=== PATIENT | male | born 1950 | race African-American/Black ===

== ENCOUNTER 2019-06-04 17:33 | Emergency (ER) | payer OTHER, MEDICAID ==
[~2019-06-04] VITALS: Ht 188 cm; Wt 86.4 kg
[~2019-06-04 17:33] MED LIST: WARF1TAB47
--- NOTE | 2019-06-04 17:48 | NUR ---
[facility], "I FELT WEAK" -LOC ALSO C/O SHARP PAIN IN HEAD AND HEAVINESS AT BLE. PATIENT A/OX4, BREATHING EVEN AND UNLABORED, NO SOB NOTED, ATTACHED TO THE MONITOR.
[2019-06-04] MEDS ORDERED: ONDANSETRON HCL/PF 4 MG/2 ML VIAL IVP ONE (18:30)
[2019-06-04] MEDS ORDERED: IV NS 0.9% 1,000 ML BAG IV ONE (18:30)
[2019-06-04] MEDS ORDERED: ACET-868 PO (18:36)
[2019-06-04] MEDS ORDERED: ONDA4TAB5 PO (18:36)
[2019-06-04] MEDS ORDERED: BUPR300T54 PO (18:36)
[2019-06-04] MEDS ORDERED: GABA800T PO (18:36)
[2019-06-04] MEDS ORDERED: HYDR12.55 PO (18:36)
[2019-06-04] MEDS ORDERED: SILD100T PO (18:36)
[2019-06-04] MEDS ORDERED: AZIL80TA PO (18:36)
[2019-06-04] MEDS ORDERED: DOCU-141 PO (18:36)
[2019-06-04] MEDS ORDERED: BUPR150T5 PO (18:36)
[2019-06-04] MEDS ORDERED: CELE200C PO (18:36)
[2019-06-04] MEDS ORDERED: DULO20CA PO (18:36)
[2019-06-04] MEDS ORDERED: FLUC200T PO (18:36)
[2019-06-04] MEDS ORDERED: ABAC1TAB3 PO (18:36)
[2019-06-04] MEDS ORDERED: NITR0.4T SL (18:36)
[2019-06-04] MEDS ORDERED: CHOL100044 PO (18:36)
[2019-06-04] MEDS ORDERED: ASPI-605 PO (18:36)
[2019-06-04] MEDS ORDERED: PANT40TA4 PO (18:36)
[2019-06-04] MEDS ORDERED: TRAM50TA2 PO (18:36)
[2019-06-04] MEDS ORDERED: CETI-102 PO (18:36)
[2019-06-04] MEDS ORDERED: TIOT18CA3 IH (18:36)
[2019-06-04] MEDS ORDERED: FLUT16SP NS (18:36)
[2019-06-04] MEDS ORDERED: ATOR80TA PO (18:36)
[2019-06-04 18:45] LABS: BASOPHILS % (AUTO) 0.5 % (0.0-2.0); EOSINOPHILS % (AUTO) 0.6 % (0.0-6.0); HEMATOCRIT 41 % (39-51); HEMOGLOBIN 13.3 g/dL (13.5-17.5); LYMPHOCYTES # (AUTO) 1.1 /CMM (0.8-4.8); LYMPHOCYTES % (AUTO) 21.8 % (20.0-44.0); MEAN CORPUSCULAR HGB CONC 33 g/dl (31.0-36.0); MEAN CORPUSCULAR VOLUME 95 fL (80-96); MONOCYTES # (AUTO) 0.5 /CMM (0.1-1.30); MONOCYTES % (AUTO) 9.5 % (2.0-12.0); NEUTROPHILS # (AUTO) 3.3 /CMM (1.8-8.9); NEUTROPHILS % (AUTO) 67.6 % (43.0-81.0); PLATELET COUNT (AUTO) 126 /CMM (150-450); WHITE BLOOD COUNT (AUTO) 4.9 K/uL (4.3-11.0)
[2019-06-04 18:55] LABS: CALCIUM, SERUM 9.1 mg/dL (8.5-10.1); CARBON DIOXIDE 28 mmol/L (21-32); CHLORIDE 104 mmol/L (98-107); CREATININE 2.4 mg/dL (0.6-1.3); GLUCOSE 106 mg/dL (74-106); POTASSIUM 3.8 mmol/L (3.5-5.1); SODIUM SERUM 140 mmol/L (136-145); UREA NITROGEN, BLOOD 27 mg/dL (7-18)
[2019-06-04 19:09] LABS: ALANINE AMINOTRANSFERASE 26 U/L (12-78); ALBUMIN 3.9 g/dL (3.4-5.0); ALKALINE PHOSPHATASE 41 U/L (46-116); ASPARTATE AMINOTRANSFERASE 15 U/L (15-37); BILIRUBIN,DIRECT 0.1 mg/dL (0.0-0.2); BILIRUBIN,TOTAL 0.3 mg/dL (0.2-1.0); TOTAL PROTEIN, SERUM 6.9 g/dL (6.4-8.2)
--- NOTE | 2019-06-04 19:28 | NUR ---
ATTEMPTED TO INSERT IV LINE MULTIPLE TIMES, UNSUCCESSFUL. INFORMED DR. PARSONS.
--- NOTE | 2019-06-04 19:32 | NUR ---
ENDORSED TO HARLEEN LEONG RN.
--- NOTE | 2019-06-04 20:55 | NUR ---
Patient discharged to home in stable condition. Written and verbal after care instructions given. Patient verbalizes understanding of instruction.
[2019-06-04 20:56] VITALS: BP 11/63
[2019-06-05 01:19] LABS: THYROID STIMULATING HORMONE 1.325 uIU/mL (0.358-3.74)
== END 2019-06-04 20:58 | disposition home or self-care (01) ==
LOC: ER 17:40
DX: E86.0 Dehydration (principal); R53.1 Weakness; I10 Essential (primary) hypertension; I25.2 Old myocardial infarction; R40.4 Transient alteration of awareness; Z86.718 Personal history of other venous thrombosis and embolism; Z88.5 Allergy status to narcotic agent; Z60.2 Problems related to living alone; Z79.82 Long term (current) use of aspirin; Z79.01 Long term (current) use of anticoagulants
CPT/HCPCS: 36415; 70450-TC; 71045-TC; 80048-TC; 80076-TC; 82962-TC; 84443-TC; 84484-TC; 85025-TC